=== PATIENT | male | born 1985 | race Caucasian/White ===

== ENCOUNTER 2021-10-15 12:08 | Observation (INO) ==
[2021-10-15] MEDS ORDERED: *HR* LORazepam 2 MG/ML VIAL IVP ONE (12:37)
[2021-10-15] MEDS ORDERED: 0.9 % Sodium Chloride 1,000 ML IV ONE (12:41)
[2021-10-15 13:01] LABS: Basophils # 0.1 K/mcL (0.0-0.2); Basophils % 0.6 %; Eosinophils # 0.1 K/mcL (0.0-0.6); Eosinophils % 0.4 %; Hematocrit 43.2 % (37.5-50.1); Hemoglobin 14.5 g/dL (12.9-16.9); Immature Granulocytes % 0.4 % (0-4); Lymphocytes # 2.6 K/mcL (0.6-4.6); Lymphocytes % 19.6 %; Mean Corpuscular HGB Conc 33.6 g/dL (31.6-35.5); Mean Corpuscular Hemoglobin 29.6 pg (28.0-33.3); Mean Corpuscular Volume 88.2 fL (83.0-100.0); Mean Platelet Volume 9.1 fL (9.4-12.4); Monocytes # 1.2 K/mcL (0.0-1.3); Monocytes % 9.3 %; Neutrophils # 9.3 K/mcL (1.6-8.9); Platelet Count 305 K/mcL (140-400); Red Cell Distribution Width 13.6 % (11.5-14.5); Segmented Neutrophils % 69.7 %; White Blood Count 13.4 K/mcL (4.3-11.1)
[2021-10-15 14:11] LABS: Alanine Aminotransferase 143 Units/L (7-52); Albumin 4.6 g/dL (3.5-5.7); Albumin/Globulin Ratio 1.2 (1.1-2.2); Alkaline Phosphatase 115 Units/L (34-104); Aspartate Amino Transferase 147 Units/L (13-39); BUN/Creatinine Ratio 10 (6-26); Bilirubin,Total 1.1 mg/dL (0.3-1.0); Blood Urea Nitrogen 9 mg/dL (6-20); Calcium 9.4 mg/dL (8.6-10.3); Carbon Dioxide 27 mEq/L (23-29); Chloride 92 mEq/L (98-107); Ethanol < 10 mg/dL (Less than 10); Globulin 3.7 g/dL (2.4-3.5); Glucose 113 mg/dL (70-105); Osmolality,Calculated 275 (280-300); Potassium 3.9 mEq/L (3.5-5.1); Sodium 133 mEq/L (136-145); Total Protein 8.3 g/dL (6.4-8.9); Troponin I < 0.03 ng/mL (< 0.04); eGFR For African Americans > 60 (> 60); eGFR For Non-African Americans > 60 (> 60)
[2021-10-15 14:29] LABS: Influenza A PCR Negative (Negative); Influenza B PCR Negative (Negative); Resp. Syncytial Virus PCR Negative (Negative)
[2021-10-15] MEDS ORDERED: *HR* LORazepam 2 MG/ML VIAL IVP PRN ×4 (14:34→15:28)
[2021-10-15 14:39] LABS: Bilirubin,Urine Negative (Negative); Blood,Urine Negative (Negative); Clarity,Urine Clear (Clear); Color,Urine Yellow (Yellow); Glucose,Urine (UA) Normal (Normal); Ketones,Urine Negative (Negative); Leukocyte Esterase,Urine Moderate (Negative); Mucus,Urine Few per lpf (None-Few); Nitrite,Urine Negative (Negative); PH,Urine 6.5 pH Units (5.0-8.0); Protein,Urine 50 mg/dL (Neg-Trace); RBC,Urine 0-3 per hpf (0-3); Specific Gravity,Urine 1.026 (1.010-1.025)
[2021-10-15 14:41] LABS: SARS-CoV-2 by PCR (In House) Negative (Negative)
[2021-10-15 14:58] LABS: Amphetamine Screen,Urine Negative ng/mL (Cutoff=1000); Barbiturate Screen,Urine Negative ng/mL (Cutoff=200); Benzodiazepines Screen,Urine Negative ng/mL (Cutoff=200); Cannabinoid Screen,Urine Negative ng/mL (Cutoff = 50); Cocaine Screen,Urine Negative ng/mL (Cutoff= 300); Opiate Screen,Urine Negative ng/mL (Cutoff=300); Phencyclidine Screen,Urine Negative ng/mL (Cutoff=25)
[2021-10-15] MEDS ORDERED: Ondansetron 4 MG/2 ML VIAL IVP PRN (15:26)
[2021-10-15] MEDS ORDERED: Naloxone 0.4 MG/ML INJ IVP PRN (15:26)
[2021-10-15] MEDS: 0.9 % Sodium Chloride 1,000 ML IVC SCH (18:04)
[2021-10-16] MEDS: 0.9 % Sodium Chloride 1,000 ML IVC SCH (07:12)
[2021-10-16 07:13] LABS: Basophils # 0.1 K/mcL (0.0-0.2); Basophils % 0.7 %; Eosinophils # 0.1 K/mcL (0.0-0.6); Eosinophils % 1.3 %; Hematocrit 41.1 % (37.5-50.1); Hemoglobin 13.4 g/dL (12.9-16.9); Immature Granulocytes % 0.4 % (0-4); Lymphocytes # 1.7 K/mcL (0.6-4.6); Lymphocytes % 20.2 %; Mean Corpuscular HGB Conc 32.6 g/dL (31.6-35.5); Mean Corpuscular Hemoglobin 29.6 pg (28.0-33.3); Mean Corpuscular Volume 90.7 fL (83.0-100.0); Mean Platelet Volume 9.1 fL (9.4-12.4); Monocytes # 0.8 K/mcL (0.0-1.3); Monocytes % 9.7 %; Neutrophils # 5.6 K/mcL (1.6-8.9); Platelet Count 256 K/mcL (140-400); Red Blood Count 4.53 M/mcL (4.19-5.50); Red Cell Distribution Width 13.6 % (11.5-14.5); Segmented Neutrophils % 67.7 %; White Blood Count 8.3 K/mcL (4.3-11.1)
[2021-10-16 07:33] LABS: BUN/Creatinine Ratio 8 (6-26); Blood Urea Nitrogen 7 mg/dL (6-20); Carbon Dioxide 31 mEq/L (23-29); Chloride 100 mEq/L (98-107); Glucose 105 mg/dL (70-105); Magnesium 1.8 mg/dL (1.6-2.6); Osmolality,Calculated 282 (280-300); Phosphorous 2.8 mg/dL (2.7-4.5); Potassium 3.5 mEq/L (3.5-5.1); Sodium 137 mEq/L (136-145); eGFR For African Americans > 60 (> 60); eGFR For Non-African Americans > 60 (> 60)
[2021-10-16] MEDS: Vitamin B Complex/Vit C/Vit E 1 EACH TABLET PO SCH (10:01)
[2021-10-16] MEDS: Thiamine (B-1) 100 MG TABLET PO SCH (10:01)
[2021-10-16] MEDS: Folic Acid 1 MG TABLET PO SCH (10:01)
[2021-10-16] MEDS ORDERED: *HR* LORazepam 2 MG/ML VIAL IVP PRN (12:47)
[2021-10-16] MEDS: *HR* Heparin 5,000 UNIT/ML VIAL SQ SCH ×2 (15:36→19:55)
[2021-10-17 04:45] VITALS: O2SAT 95
[2021-10-17 05:12] LABS: Basophils # 0.1 K/mcL (0.0-0.2); Basophils % 0.8 %; Eosinophils # 0.1 K/mcL (0.0-0.6); Eosinophils % 1.2 %; Hemoglobin 13.4 g/dL (12.9-16.9); Immature Granulocytes % 0.7 % (0-4); Lymphocytes # 2.3 K/mcL (0.6-4.6); Lymphocytes % 22.8 %; Mean Corpuscular HGB Conc 31.9 g/dL (31.6-35.5); Mean Corpuscular Hemoglobin 29.1 pg (28.0-33.3); Mean Corpuscular Volume 91.3 fL (83.0-100.0); Mean Platelet Volume 9.2 fL (9.4-12.4); Monocytes % 10.1 %; Neutrophils # 6.6 K/mcL (1.6-8.9); Platelet Count 252 K/mcL (140-400); Red Cell Distribution Width 13.5 % (11.5-14.5); Segmented Neutrophils % 64.4 %; White Blood Count 10.3 K/mcL (4.3-11.1)
[2021-10-17 05:41] LABS: BUN/Creatinine Ratio 10 (6-26); Blood Urea Nitrogen 7 mg/dL (6-20); Calcium 8.2 mg/dL (8.6-10.3); Carbon Dioxide 24 mEq/L (23-29); Chloride 104 mEq/L (98-107); Glucose 104 mg/dL (70-105); Magnesium 1.7 mg/dL (1.6-2.6); Osmolality,Calculated 282 (280-300); Phosphorous 2.6 mg/dL (2.7-4.5); Potassium 3.3 mEq/L (3.5-5.1); Sodium 137 mEq/L (136-145); eGFR For African Americans > 60 (> 60); eGFR For Non-African Americans > 60 (> 60)
[2021-10-17 07:01] VITALS: BP 146/101; PULSE 84; TEMP 98.7
[2021-10-17] MEDS: Thiamine (B-1) 100 MG TABLET PO SCH (07:32)
[2021-10-17] MEDS: Vitamin B Complex/Vit C/Vit E 1 EACH TABLET PO SCH (07:33)
[2021-10-17] MEDS: Folic Acid 1 MG TABLET PO SCH (07:33)
[2021-10-17] MEDS ORDERED: NON-FORMULARY MEDICATION 1 EACH EACH (Fluoxetine Hcl [Fluoxetine Hcl] 40 MG Capsule) PO SCH (09:00)
[2021-10-17] MEDS ORDERED: FLUoxetine 20 MG CAPSULE PO SCH (09:00)
== END 2021-10-17 15:58 | disposition home or self-care (01) ==
LOC: 2ANU 12:08 → EMEROOARM 12:08 → SUATTDRO 16:19 → 2ANU 17:10
PROVIDERS: ADMIT General Practice; ATTEND Family Medicine

== ENCOUNTER 2021-12-18 15:52 | Observation (INO) ==
[2021-12-18 17:07] LABS: Bilirubin,Urine Negative (Negative); Blood,Urine Negative (Negative); Clarity,Urine Clear (Clear); Color,Urine Light-Yellow (Yellow); Glucose,Urine (UA) Normal (Normal); Ketones,Urine Negative (Negative); Leukocyte Esterase,Urine Negative (Negative); Nitrite,Urine Negative (Negative); Protein,Urine Negative (Neg-Trace); Specific Gravity,Urine 1.009 (1.010-1.025); Urobilinogen,Urine Normal (Normal)
[2021-12-18 17:08] LABS: Basophils # 0.2 K/mcL (0.0-0.2); Basophils % 2.1 %; Eosinophils # 0.2 K/mcL (0.0-0.6); Eosinophils % 2.1 %; Hematocrit 45.7 % (37.5-50.1); Hemoglobin 14.7 g/dL (12.9-16.9); Immature Granulocytes % 0.3 % (0-4); Lymphocytes % 48.5 %; Mean Corpuscular HGB Conc 32.2 g/dL (31.6-35.5); Mean Corpuscular Hemoglobin 28.4 pg (28.0-33.3); Mean Corpuscular Volume 88.4 fL (83.0-100.0); Mean Platelet Volume 8.2 fL (9.4-12.4); Monocytes # 0.6 K/mcL (0.0-1.3); Monocytes % 6.1 %; Neutrophils # 4.2 K/mcL (1.6-8.9); Platelet Count 609 K/mcL (140-400); Red Blood Count 5.17 M/mcL (4.19-5.50); Red Cell Distribution Width 14.9 % (11.5-14.5); Segmented Neutrophils % 40.9 %; White Blood Count 10.2 K/mcL (4.3-11.1)
[2021-12-18 17:32] LABS: Estimated Average Glucose 117 mg/dl; Hemoglobin A1C 5.7 %
[2021-12-18 17:35] LABS: Acetaminophen < 10 mcg/mL (10-20); BUN/Creatinine Ratio 8 (6-26); Blood Urea Nitrogen 7 mg/dL (6-20); Calcium 8.8 mg/dL (8.6-10.3); Carbon Dioxide 25 mEq/L (23-29); Chloride 106 mEq/L (98-107); Chol/HDL Ratio 4.6 (0-4.9); Cholesterol 207 mg/dL (< 200); Ethanol 393 mg/dL (Less than 10); Glucose 103 mg/dL (70-105); HDL Cholesterol 45 mg/dL (40-59); LDL Cholesterol,Calculated 109 mg/dL (< 100); Osmolality,Calculated 290 (280-300); Potassium 3.6 mEq/L (3.5-5.1); Salicylate < 2.5 mg/dL (15.0-30.0); Sodium 141 mEq/L (136-145); Triglycerides 266 mg/dL (< 150)
[2021-12-18 18:26] LABS: Amphetamine Screen,Urine Negative ng/mL (Cutoff=1000); Barbiturate Screen,Urine Negative ng/mL (Cutoff=200); Benzodiazepines Screen,Urine Positive ng/mL (Cutoff=200); Cannabinoid Screen,Urine Negative ng/mL (Cutoff = 50); Cocaine Screen,Urine Negative ng/mL (Cutoff= 300); Opiate Screen,Urine Negative ng/mL (Cutoff=300); Phencyclidine Screen,Urine Negative ng/mL (Cutoff=25)
[2021-12-19] MEDS ORDERED: *HR* LORazepam 2 MG/ML VIAL IVP ONE ×2 (10:07→10:58)
[2021-12-19] MEDS ORDERED: Ibuprofen 400 MG TABLET PO PRN (10:16)
[2021-12-19] MEDS ORDERED: Melatonin 3 MG TABLET PO PRN (10:16)
[2021-12-19] MEDS ORDERED: Ondansetron 4 MG/2 ML VIAL IVP PRN (10:16)
[2021-12-19] MEDS ORDERED: Naloxone 0.4 MG/ML INJ IVP PRN (10:16)
[2021-12-19] MEDS ORDERED: *HR* LORazepam 2 MG/ML VIAL IVP PRN ×2 (10:19)
[2021-12-19] MEDS ORDERED: 0.9 % Sodium Chloride 1,000 ML IVC SCH (10:30)
[2021-12-19] MEDS: Nicotine 14 MG PATCH.TD24 TD SCH (11:24)
[2021-12-19] MEDS: Thiamine (B-1) 100 MG, Folic Acid 1 MG, MVI, adult with vitamin K 10 ML in 0.9 % Sodi... IVPB SCH (12:45)
[2021-12-19] MEDS: *HR* LORazepam 2 MG/ML VIAL IVP PRN ×2 (15:10→20:37)
[2021-12-20 05:35] LABS: BUN/Creatinine Ratio 13 (6-26); Blood Urea Nitrogen 9 mg/dL (6-20); Calcium 8.6 mg/dL (8.6-10.3); Carbon Dioxide 25 mEq/L (23-29); Chloride 101 mEq/L (98-107); Glucose 89 mg/dL (70-105); Magnesium 1.3 mg/dL (1.6-2.6); Osmolality,Calculated 278 (280-300); Potassium 3.7 mEq/L (3.5-5.1); Sodium 135 mEq/L (136-145)
[2021-12-20] MEDS: *HR* LORazepam 2 MG/ML VIAL IVP PRN (05:36)
[2021-12-20] MEDS: amLODIPine 5 MG TABLET PO SCH (09:04)
[2021-12-20] MEDS: Nicotine 14 MG PATCH.TD24 TD SCH (09:04)
[2021-12-20] MEDS: Thiamine (B-1) 100 MG, Folic Acid 1 MG, MVI, adult with vitamin K 10 ML in 0.9 % Sodi... IVPB SCH (17:32)
[2021-12-21] MEDS: amLODIPine 5 MG TABLET PO SCH (08:30)
[2021-12-21] MEDS: Nicotine 14 MG PATCH.TD24 TD SCH (08:30)
[2021-12-21] MEDS: Thiamine (B-1) 100 MG, Folic Acid 1 MG, MVI, adult with vitamin K 10 ML in 0.9 % Sodi... IVPB SCH (15:22)
[2021-12-22 06:49] VITALS: O2SAT 95
[2021-12-22] MEDS: amLODIPine 5 MG TABLET PO SCH (07:55)
[2021-12-22] MEDS: Nicotine 14 MG PATCH.TD24 TD SCH (07:55)
[2021-12-22] MEDS ORDERED: FLUoxetine HCl Oral Soln 20 MG/5 ML UDC PO SCH (09:00)
[2021-12-22 10:52] VITALS: BP 116/72; PULSE 96; TEMP 98.1
== END 2021-12-22 14:45 | disposition home or self-care (01) ==
LOC: 3BNU 15:52 → EMEROOARM 15:52 → SUATTDRO 12-19 10:58 → 3BNU 12-19 11:48
PROVIDERS: ADMIT Internal Medicine; ATTEND Internal Medicine